=== PATIENT | female | born 1975 | race African-American/Black ===

== ENCOUNTER 2022-01-30 10:00 | Inpatient (IN) | payer MEDICARE, MEDICAID ==
[~2022-01-30] VITALS: Ht 165.1 cm; Wt 96.0 kg
[2022-01-30] VITALS (7 sets, daily range): BP systolic 127–159; BP diastolic 91–113
[~2022-01-30 10:00] MED LIST: ALBU2.5V7 NEB; ALPR-624 PO; ASPI81TA52 PO; BENZ-49 PO; CARV25TA2 PO; FLUT16SP26 BOTHNARES; HYDR50TA65 PO; MONT10TA21 PO; PRED20TA PO; SEVE2.4P3 PO; SULF-14 PO; TIOT18CA3 PO
[2022-01-30] MEDS ORDERED: hydrALAZINE 20mg/ml inj. IV ONE ×2 (10:25→11:25)
[2022-01-30] MEDS ORDERED: nitroGLYCERIN 1gm ointment UD TP ONE (10:25)
--- NOTE | 2022-01-30 11:35 | NUR ---
while giving 5mg hydralazine pt pressure dropped to 124/95, did not give the other 5mg. SBAR to to cerda, gave her vial.
[2022-01-30 11:47] LABS: ALANINE AMINOTRANSFERASE 23 U/L (12-78); ALBUMIN 3.6 G/DL (3.4-5.0); ALBUMIN/GLOBULIN RATIO 1.2 (1.1-1.5); ALKALINE PHOSPHATASE 91 IU/L (46-116); ANION GAP 11 (8-16); ASPARTATE AMINO TRANSFERASE 12 U/L (10-37); BILIRUBIN,TOTAL 0.5 MG/DL (0.1-1.0); BLOOD UREA NITROGEN 71 MG/DL (7-18); BUN/CREATININE RATIO 7.3 (6.6-38.0); CALCIUM 9.5 MG/DL (8.5-10.1); CHLORIDE 100 MMOL/L (99-107); CREATININE 9.76 MG/DL (0.40-0.90); GLUCOSE 232 MG/DL (70-104); SODIUM 141 MMOL/L (135-145); TOTAL CARBON DIOXIDE 30.3 MMOL/L (24-32); TOTAL PROTEIN 6.6 G/DL (6.4-8.2); eGFR 4 ML/MIN
[2022-01-30 11:51] LABS: POTASSIUM 7.3 MMOL/L (3.5-5.1)
[2022-01-30 11:52] LABS: BASOPHILS % (AUTO) 0.2 % (0-1); EOSINOPHILS % (AUTO) 0.3 % (0-6); HEMATOCRIT 36.7 % (35.0-45.0); HEMOGLOBIN 11.2 g/dl (12.0-16.0); LYMPHOCYTES # (AUTO) 1.1 X10'3 (1.1-4.8); LYMPHOCYTES % (AUTO) 9.7 % (21-51); MEAN CORPUSCULAR HEMOGLOBIN 28.1 PG (27.0-31.0); MEAN CORPUSCULAR HGB CONC 30.7 g/dL (33.0-36.5); MEAN CORPUSCULAR VOLUME 91.7 FL (78-98); MEAN PLATELET VOLUME 7.7 FL (7.4-10.4); MONOCYTES # (AUTO) 0.3 X10'3 (0-0.9); MONOCYTES % (AUTO) 3.1 % (2-12); NEUTROPHILS # (AUTO) 9.7 X10'3 (1.8-7.7); NEUTROPHILS % (AUTO) 86.7 % (42-75); PLATELET COUNT 245 X10'3 (140-440); RED CELL DISTRIBUTION WIDTH 16.1 % (11.5-14.5); WHITE BLOOD COUNT 11.2 X10'3 (4.5-11.0)
[2022-01-30] MEDS ORDERED: dextrose 50%-water 50ml dispensing syringe IV ONE (11:55)
[2022-01-30] MEDS ORDERED: insulin regular, human 10 units/0.1 ml syringe IV ONE (11:55)
[2022-01-30] MEDS ORDERED: albuterol 2.5 MG/3 ML nebule CONTNEB PRN (11:55)
[2022-01-30] MEDS ORDERED: PATIROMER CALCIUM SORBITEX 8.4 GM POWD.PACK PO ONE (11:55)
[2022-01-30] MEDS ORDERED: calcium chloride 100 MG/1 ML inj IV ONE ×2 (11:55→12:35)
[2022-01-30] MEDS ORDERED: calcium gluconate inj. 3 GM in normal saline 100ml IV soln 100 ML IV ONE (12:30)
[2022-01-30] MEDS ORDERED: magnesium hydroxide 30ml (MOM) UD suspension PO PRN (12:35)
[2022-01-30] MEDS ORDERED: LIDOcaine 2% 10ml TOPICAL JELLY (Urojet) TP ONE (12:35)
[2022-01-30] MEDS ORDERED: morphine 2 MG/ML inj. syringe IV PRN (12:35)
[2022-01-30] MEDS ORDERED: acetaminophen 325mg tablet PO PRN (12:35)
[2022-01-30] MEDS ORDERED: ondansetron/PF 4mg/2ml inj IV PRN (12:35)
[2022-01-30] MEDS ORDERED: calcium chloride inj. 1,000 MG in NS 100ml IV soln (110ml) IV ONE (12:45)
[2022-01-30] MEDS: acetaminophen 325mg tablet PO PRN (13:09)
[2022-01-30] MEDS ORDERED: MULT-1085 PO (13:33)
[2022-01-30] MEDS ORDERED: BUME2TAB7 PO (13:33)
[2022-01-30] MEDS ORDERED: FAMO20TA8 PO (13:33)
[2022-01-30] MEDS ORDERED: SEVE800T8 PO ×2 (13:33→15:54)
[2022-01-30] MEDS ORDERED: PANT-47 PO (13:33)
[2022-01-30] MEDS ORDERED: GUAI600T45 PO (13:33)
[2022-01-30] MEDS ORDERED: PARO7.5C2 PO (13:33)
[2022-01-30] MEDS ORDERED: PRED5TAB PO (13:33)
[2022-01-30] MEDS ORDERED: FURO-149 PO (13:33)
[2022-01-30] MEDS ORDERED: HYDR-4069 PO (13:33)
[2022-01-30] MEDS ORDERED: ARFO15VI INH (13:33)
--- NOTE | 2022-01-30 13:33 | NUR ---
med rec completed with pt list and external med rec
[2022-01-30] MEDS ORDERED: dextrose 50%-water 50ml dispensing syringe IV PRN ×2 (14:45)
[2022-01-30] MEDS ORDERED: DEXTROSE 15 GM of carb/4 tabs (each vial/BOTTLE has 4 tablets) PO PRN ×2 (14:45)
[2022-01-30] MEDS ORDERED: glucagon, human recombinant 1mg kit SUBCUT PRN (14:45)
[2022-01-30] MEDS ORDERED: heparin 1,000 units/ml 10ml inj IV ONE (15:05)
[2022-01-30] MEDS ORDERED: EPOETIN ALFA-EPBX 20,000 UNIT/ML 1 ML MDV IV ONE (15:05)
[2022-01-30] MEDS ORDERED: heparin 1,000unit/ml 10ml vial 10 ML IV ONE (15:05)
[2022-01-30] MEDS ORDERED: albumin (human) 25% 100ml IV 100 ML IV PRN (15:05)
[2022-01-30] MEDS ORDERED: BUME1TAB8 PO (15:54)
[2022-01-30] MEDS ORDERED: ALBU2.5V13 INH (15:54)
[2022-01-30] MEDS ORDERED: hyDRALAzine 10mg tablet PO ONE (16:10)
[2022-01-30] MEDS ORDERED: LIDOcaine 1% (10mg/ml) 2ml vial SQ ONE (17:20)
[2022-01-30] MEDS ORDERED: fluticasone nasal spray 16GM bottle NS PRN (17:30)
[2022-01-30] MEDS ORDERED: sevelamer carbonate 800mg tablet PO PRN (17:30)
--- NOTE | 2022-01-30 18:37 | NUR ---
Patient in room CICU 2006. I have received report from jane PEREZ and had the opportunity to ask questions and assume patient care.
[2022-01-30] MEDS: albuterol 2.5 MG/3 ML nebule NEB SCH ×2 (19:17→23:00)
[2022-01-30] MEDS ORDERED: albuterol 2.5 MG/3 ML nebule NEB SCH (20:00)
[2022-01-30] MEDS ORDERED: benzonatate 100mg capsule PO PRN (20:30)
[2022-01-30] MEDS ORDERED: hydrOXYzine 25 MG tablet PO ONE (20:30)
[2022-01-30] MEDS: ipratropium 0.5 MG/2.5ML nebule IH SCH (21:00)
[2022-01-30] MEDS ORDERED: ipratropium/albuterol 3ml nebule NEB SCH (21:00)
[2022-01-30] MEDS: benzonatate 100mg capsule PO PRN (21:52)
[2022-01-30] MEDS: docusate sod 100mg capsule PO SCH (21:52)
[2022-01-30] MEDS: carVEDilol 12.5mg tablet PO SCH (21:52)
[2022-01-30] MEDS: guaiFENesin ER 600mg tablet PO SCH (21:53)
[2022-01-30] MEDS: bumetanide 1mg tablet PO SCH (21:56)
[2022-01-30] MEDS: sevelamer carbonate 800mg tablet PO SCH (22:52)
--- NOTE | 2022-01-30 23:30 | NUR ---
Report called to receiving nurse Vanna. Transferred via wheelchair with tele box,Belongings were taken home by mom . Special Issues communicated to receiving nurse.
[2022-01-31] VITALS (7 sets, daily range): BP systolic 104–143; BP diastolic 61–93
[2022-01-31] MEDS: acetaminophen 325mg tablet PO PRN (00:12)
[2022-01-31] MEDS: benzonatate 100mg capsule PO PRN ×2 (00:15→13:46)
[2022-01-31] MEDS: albuterol 2.5 MG/3 ML nebule NEB SCH ×2 (00:37→03:00)
[2022-01-31] MEDS: ipratropium 0.5 MG/2.5ML nebule IH SCH (03:00)
--- NOTE | 2022-01-31 06:15 | NUR ---
Patient in room PCU 3013. I have received report from Maryjo PEREZ and had the opportunity to ask questions and assume patient care.
[2022-01-31 07:15] LABS: MAGNESIUM 2.3 MG/DL (1.5-2.4)
[2022-01-31] MEDS: carVEDilol 12.5mg tablet PO SCH ×2 (07:59→20:11)
[2022-01-31] MEDS: guaiFENesin ER 600mg tablet PO SCH ×2 (07:59→20:11)
[2022-01-31] MEDS: multivitamins, therapeutics tablet PO SCH (07:59)
[2022-01-31] MEDS: predniSONE 5mg tablet PO SCH (08:00)
[2022-01-31] MEDS ORDERED: montelukast 10mg tablet PO SCH (08:00)
[2022-01-31] MEDS: docusate sod 100mg capsule PO SCH ×2 (08:00→20:11)
[2022-01-31] MEDS: sevelamer carbonate 800mg tablet PO SCH ×3 (08:00→20:27)
[2022-01-31] MEDS ORDERED: pantoprazole 40MG/NS 100ML BAG 100 ML IV SCH (08:00)
[2022-01-31] MEDS: bumetanide 1mg tablet PO SCH ×3 (08:01→20:11)
[2022-01-31] MEDS: pantoprazole 40mg Tablet.DR PO SCH (08:01)
[2022-01-31] MEDS: ipratropium/albuterol 3ml nebule NEB SCH ×5 (08:18→23:00)
--- NOTE | 2022-01-31 10:56 | NUR ---
Renal consult: Noted pt admit with hyperkalemia and fluid overload. Pt seen at bedside for written and verbal education regarding potassium content of food, foods considered fluid, and tips for ESRD on HD. Pt denies past h/o elevated electrolytes and states she takes per phos binder per rx. Pt states she sees a dietitian at the dialysis clinic. All of patient's questions were answered at this time. Food preferences were obtained and d/w dietary, see below. Pt endorses a good appetite and denies food allergies or difficulty chewing/swallowing. Pt provided with RD contact information and encouraged to reach out if needed. Noted patient's diet order was completed upon fluid restriction order, d/w RN recommendation to resume renal diet in EMR. Will continue to follow. Recommendations: 1) Resume renal diet; 1 L fluid restriction per MD 2) Embudo food preferences: No pork, white bread, white rice, oatmeal, or cream of wheat; prefers brown rice 3) Bowel care per rx 4) Scaled weights with dialysis Addendum: 01/31/22 at [address] Amended: Links added.
[2022-01-31 11:17] LABS: ALANINE AMINOTRANSFERASE 20 U/L (12-78); ALBUMIN 3.4 G/DL (3.4-5.0); ALBUMIN/GLOBULIN RATIO 1.3 (1.1-1.5); ALKALINE PHOSPHATASE 77 IU/L (46-116); ANION GAP 8 (8-16); ASPARTATE AMINO TRANSFERASE 13 U/L (10-37); BASOPHILS # (AUTO) 0.1 X10'3 (0-0.2); BASOPHILS % (AUTO) 0.5 % (0-1); BILIRUBIN,TOTAL 0.6 MG/DL (0.1-1.0); BLOOD UREA NITROGEN 40 MG/DL (7-18); BUN/CREATININE RATIO 6.8 (6.6-38.0); CALCIUM 9.6 MG/DL (8.5-10.1); CHLORIDE 102 MMOL/L (99-107); CREATININE 5.84 MG/DL (0.40-0.90); EOSINOPHILS # (AUTO) 0.1 X10'3 (0-0.9); EOSINOPHILS % (AUTO) 0.6 % (0-6); GLUCOSE 92 MG/DL (70-104); HEMATOCRIT 35.1 % (35.0-45.0); HEMOGLOBIN 10.8 g/dl (12.0-16.0); LYMPHOCYTES % (AUTO) 18.3 % (21-51); MEAN CORPUSCULAR HEMOGLOBIN 27.8 PG (27.0-31.0); MEAN CORPUSCULAR HGB CONC 30.6 g/dL (33.0-36.5); MEAN CORPUSCULAR VOLUME 90.8 FL (78-98); MEAN PLATELET VOLUME 7.9 FL (7.4-10.4); MONOCYTES # (AUTO) 0.9 X10'3 (0-0.9); MONOCYTES % (AUTO) 8.5 % (2-12); NEUTROPHILS # (AUTO) 7.9 X10'3 (1.8-7.7); NEUTROPHILS % (AUTO) 72.1 % (42-75); PLATELET COUNT 190 X10'3 (140-440); RED BLOOD COUNT 3.87 X10'6 (4.20-5.60); RED CELL DISTRIBUTION WIDTH 16.3 % (11.5-14.5); SODIUM 139 MMOL/L (135-145); TOTAL CARBON DIOXIDE 29.3 MMOL/L (24-32); WHITE BLOOD COUNT 10.9 X10'3 (4.5-11.0); eGFR 9 ML/MIN
--- NOTE | 2022-01-31 11:57 | NUR ---
Message: SAMANTHA ON [email or web address]@[phone], DR. LIZ ASKED THAT I LET YOU KNOW THAT 3013A REFUSED TO LET DR. LIZ TREAT ON EXAMINE HER. PATIENT NAME IS NELLY. I WAS IN THE ROOM AND WITNESSED. DR. LIZ WILL WRITE UP IN HER NOTES. THANK YOU.
--- NOTE | 2022-01-31 13:40 | NUR ---
Paged Dr. Astorga regarding pts request for Atarax for itching. PAGER ID: [phone] MESSAGE: [phone], Maria Dolores Ramirez. Apparently the pt is willing to receive care from you as long as she doesn't have to talk to you, shes itching and asking for Atarax. Marisabel [facility] 1960.
[2022-01-31] MEDS ORDERED: hydrOXYzine 25 MG tablet PO ONE (14:00)
--- NOTE | 2022-01-31 18:32 | NUR ---
Problems reprioritized. Patient report given, questions answered & plan of care reviewed with Maryjo PEREZ, patient stable at transfer of care.
[2022-01-31] MEDS: montelukast 10mg tablet PO SCH (20:28)
[2022-02-01] MEDS: hydrOXYzine 25 MG tablet PO PRN ×2 (01:10→15:41)
[2022-02-01] MEDS: benzonatate 100mg capsule PO PRN ×2 (01:10→15:42)
[2022-02-01] MEDS: ipratropium/albuterol 3ml nebule NEB SCH ×6 (03:00→23:02)
[2022-02-01 06:00] VITALS: BP 131/83
--- NOTE | 2022-02-01 06:16 | NUR ---
Patient in room PCU 3013. I have received report from Maryjo PEREZ and had the opportunity to ask questions and assume patient care.
[2022-02-01] MEDS ORDERED: LIDOcaine 1% (10mg/ml) 2ml vial SQ ONE (08:00)
[2022-02-01] MEDS ORDERED: EPOETIN ALFA-EPBX 20,000 UNIT/ML 1 ML MDV IV ONE (08:00)
[2022-02-01] MEDS ORDERED: normal saline 1000ml 250 ML IV PRN (08:00)
[2022-02-01] MEDS: sevelamer carbonate 800mg tablet PO SCH ×3 (09:18→18:00)
[2022-02-01] MEDS: pantoprazole 40mg Tablet.DR PO SCH (09:19)
[2022-02-01] MEDS: carVEDilol 12.5mg tablet PO SCH ×2 (09:19→20:22)
[2022-02-01] MEDS: docusate sod 100mg capsule PO SCH ×2 (09:19→19:56)
[2022-02-01] MEDS: bumetanide 1mg tablet PO SCH ×3 (09:19→19:58)
[2022-02-01] MEDS: multivitamins, therapeutics tablet PO SCH (09:19)
[2022-02-01] MEDS: predniSONE 5mg tablet PO SCH (09:19)
[2022-02-01] MEDS: guaiFENesin ER 600mg tablet PO SCH ×2 (09:19→19:58)
[2022-02-01] MEDS: heparin 1,000 units/ml 10ml inj IV ONE ×2 (10:43→11:45)
[2022-02-01] MEDS ORDERED: ALPRAZolam 0.5mg tablet PO ONE (10:55)
[2022-02-01 11:00] VITALS: BP 147/100
[2022-02-01 13:10] LABS: MAGNESIUM 2.1 MG/DL (1.5-2.4); POTASSIUM 3.5 MMOL/L (3.5-5.1)
[2022-02-01 15:00] VITALS: BP 91/67
--- NOTE | 2022-02-01 16:31 | NUR ---
Paged Dr. Nugent regarding if its ok if patient doesn't need a new IV. Hers came out and she is a very hard stick and isn't receiving any IV meds. PAGER ID: [phone] MESSAGE: [phone], Maria Dolores Hannaha. Pts IV came out and they are a very hard stick. She is supposed to be discharged tomorrow from what I understand. She isn't getting any IV meds. Is it ok for no IV? Marisabel [facility] 4985.
[2022-02-01 18:00] VITALS: BP 115/84
[2022-02-01 19:55] VITALS: BP 119/79
[2022-02-01] MEDS: montelukast 10mg tablet PO SCH (19:58)
--- NOTE | 2022-02-01 21:21 | NUR ---
Received report from CHRIS Sibley
[2022-02-02 02:43] VITALS: BP 126/94
[2022-02-02] MEDS: ipratropium/albuterol 3ml nebule NEB SCH ×4 (03:00→15:45)
[2022-02-02 06:00] VITALS: BP 128/91
--- NOTE | 2022-02-02 06:17 | NUR ---
Problems reprioritized. Patient report given, questions answered & plan of care reviewed with CHRIS Petit.
[2022-02-02] MEDS: hydrOXYzine 25 MG tablet PO PRN ×2 (07:10→15:46)
[2022-02-02] MEDS: docusate sod 100mg capsule PO SCH (08:00)
[2022-02-02] MEDS: pantoprazole 40mg Tablet.DR PO SCH (08:06)
[2022-02-02] MEDS: guaiFENesin ER 600mg tablet PO SCH (08:06)
[2022-02-02] MEDS: carVEDilol 12.5mg tablet PO SCH (08:06)
[2022-02-02] MEDS: predniSONE 5mg tablet PO SCH (08:06)
[2022-02-02] MEDS: bumetanide 1mg tablet PO SCH (08:06)
[2022-02-02] MEDS: multivitamins, therapeutics tablet PO SCH (08:06)
[2022-02-02] MEDS: sevelamer carbonate 800mg tablet PO SCH ×2 (08:09→12:54)
--- NOTE | 2022-02-02 14:34 | NUR ---
Paged Dr. Nugent asking if patient is still being discharged. PAGER ID: [phone] MESSAGE: [phone], Maria Dolores Ramirez. Is patient still being discharged today? The mom is here and waiting for orders. [facility] 3533.
[2022-02-02] MEDS ORDERED: [UNRECOGNIZED DRUG - OTHER] (15:11)
[2022-02-02] MEDS ORDERED: ARFO15VI INH (15:11)
--- NOTE | 2022-02-02 15:35 | NUR ---
Paged Dr. Nugent that the script he wrote for the patient is not the correct medication. The patient is asking for a different med. PAGER ID: [phone] MESSAGE: [phone], Maria Dolores Ramirez. I am so sorry, Apparently the mother says the medication that they need is Formoterol NOT arformoterol. She says the one that they have available is formoterol. Marisabel [facility] 5415.
[2022-02-02] MEDS ORDERED: FORM20VI4 INH (15:41)
--- NOTE | 2022-02-02 16:27 | NUR ---
Patient stable at discharge per Dr. Nugent orders. All discharge instructions reviewed with patient and all questions answered. New prescription written and sent with the family. Tele discontinued. PIV discontinued yesterday. Wheeled to lobby via nursing staff and picked up by family.
[2022-02-03] MEDS ORDERED: FORM1POW5 INH ×2 (16:31)
[2022-02-03] MEDS ORDERED: FORM20VI4 INH ×2 (16:36→16:40)
== END 2022-02-02 16:09 | disposition home health service (06) | DRG 189 ==
LOC: ER 10:01 → MERGE 12:47 → ED HOLD 12:47 → CICU 2S 14:21 → PCU 3S 23:42
PROVIDERS: ADMIT Family Medicine; ATTEND Family Medicine
PROC: 5A09357 Assistance with Respiratory Ventilation, Less than 24 Consecutive Hours, Continuous Positive Airway Pressure (ICD-10-PCS; principal; 2022-01-30)
PROC: 5A1D70Z Performance of Urinary Filtration, Intermittent, Less than 6 Hours Per Day (ICD-10-PCS; 2022-01-30)
PROC: 5A09357 Assistance with Respiratory Ventilation, Less than 24 Consecutive Hours, Continuous Positive Airway Pressure (ICD-10-PCS; 2022-01-31)
PROC: 5A1D70Z Performance of Urinary Filtration, Intermittent, Less than 6 Hours Per Day (ICD-10-PCS; 2022-02-01)
PROC: 5A09357 Assistance with Respiratory Ventilation, Less than 24 Consecutive Hours, Continuous Positive Airway Pressure (ICD-10-PCS; 2022-02-02)
DX: J96.00 Acute respiratory failure, unspecified whether with hypoxia or hypercapnia (principal); N18.6 End stage renal disease; I40.1 Isolated myocarditis; I13.2 Hypertensive heart and chronic kidney disease with heart failure and with stage 5 chronic kidney disease, or end stage renal disease; E87.2 Acidosis; I50.22 Chronic systolic (congestive) heart failure; E87.5 Hyperkalemia; Z20.822 Contact with and (suspected) exposure to COVID-19; E11.22 Type 2 diabetes mellitus with diabetic chronic kidney disease; E66.01 Morbid (severe) obesity due to excess calories; J44.9 Chronic obstructive pulmonary disease, unspecified; D63.1 Anemia in chronic kidney disease; Z99.2 Dependence on renal dialysis; Z28.310 Unvaccinated for COVID-19; Z68.35 Body mass index [BMI] 35.0-35.9, adult; Z88.8 Allergy status to other drugs, medicaments and biological substances; Z79.899 Other long term (current) drug therapy
CPT/HCPCS: 36415; 71045; 80053; 82948; 83036; 83735; 83880; 84132; 84484; 85025; 85610; 87081; 87635; 94640; 94660; 94760; 96374; 96375; 97116; 97161; 97530; 99285; A7015; G0257; G0378; J0360; J1644; J1815; J3490; J7512; Q0177; Q4081

== ENCOUNTER 2022-09-01 08:05 | Day surgery (SDC) | payer MEDICARE, MEDICAID ==
[~2022-09-01 08:05] MED LIST changes: +ADV50100 PO; +ALBU2.5V13 INH; -ALBU2.5V7 NEB; -ALPR-624 PO; +ALPR0.252 PO; -ASPI81TA52 PO; -BENZ-49 PO; -CARV25TA2 PO; +CARV25TA3 PO; +CETI10TA14 PO; +DOXE10CA3 PO; +FOLI1TAB34 PO; +FORM20VI4 PO; +MEPO100A SQ; -MONT10TA21 PO; -PRED20TA PO; -SEVE2.4P3 PO; +SEVE800T7 PO; +SODI10PO PO; -SULF-14 PO; +TES100C PO
[2022-09-01 08:30] VITALS: BP 137/85
--- NOTE | 2022-09-01 09:02 | NUR ---
Dr. Canchola at bedside, procedure cancelled due to patient requesting a General anesthetic for sedation. Will reschedule.
== END 2022-09-01 09:04 | disposition home or self-care (01) ==
LOC: SSTAY O 08:05
PROVIDERS: ATTEND Radiology Diagnostic Radiology
DX: T82.858A Stenosis of other vascular prosthetic devices, implants and grafts, initial encounter (principal); Z53.8 Procedure and treatment not carried out for other reasons; Y83.8 Other surgical procedures as the cause of abnormal reaction of the patient, or of later complication, without mention of misadventure at the time of the procedure
CPT/HCPCS: J7030

== ENCOUNTER 2022-09-08 09:03 | Day surgery (SDC) | payer MEDICARE, MEDICAID ==
[2022-09-07 10:36] LABS: BASOPHILS % (AUTO) 0.5 % (0-1); EOSINOPHILS # (AUTO) 0.1 X10'3 (0-0.9); EOSINOPHILS % (AUTO) 1.2 % (0-6); LYMPHOCYTES % (AUTO) 30.9 % (21-51); MEAN CORPUSCULAR HEMOGLOBIN 27.8 PG (27.0-31.0); MEAN CORPUSCULAR HGB CONC 31.3 g/dL (33.0-36.5); MEAN CORPUSCULAR VOLUME 88.7 FL (78-98); MEAN PLATELET VOLUME 7.1 FL (7.4-10.4); MONOCYTES % (AUTO) 15.5 % (2-12); NEUTROPHILS # (AUTO) 3.4 X10'3 (1.8-7.7); NEUTROPHILS % (AUTO) 51.9 % (42-75); PRE OP HEMATOCRIT 36.6 % (35.0-45.0); PRE OP HEMOGLOBIN 11.5 g/dL (12.0-16.0); PRE OP PLATELET COUNT 318 X10'3 (140-440); RED BLOOD COUNT 4.13 X10'6 (4.20-5.60); RED CELL DISTRIBUTION WIDTH 17.1 % (11.5-14.5)
[2022-09-07 10:52] LABS: ALBUMIN 3.2 G/DL (3.4-5.0); ALBUMIN/GLOBULIN RATIO 0.8 (1.1-1.5); ALKALINE PHOSPHATASE 185 IU/L (46-116); BLOOD UREA NITROGEN 35 MG/DL (7-18); BUN/CREATININE RATIO 5.1 (6.6-38.0); CALCIUM 10.5 MG/DL (8.5-10.1); CHLORIDE 97 MMOL/L (99-107); CREATININE 6.87 MG/DL (0.40-0.90); PRE OP ALT 25 U/L (30-65); PRE OP ANION GAP 10 (8-16); PRE OP AST 21 U/L (10-37); PRE OP BILIRUB, TOTAL 0.4 MG/DL (0.0-1.0); PRE OP GLUCOSE 103 MG/DL (70-104); PRE OP POTASSIUM 5.3 MMOL/L (3.4-5.1); PRE OP SODIUM 136 MMOL/L (135-145); TOTAL CARBON DIOXIDE 29.2 MMOL/L (24-32); eGFR 8 ML/MIN
[2022-09-08] VITALS (13 sets, daily range): BP systolic 107–145; BP diastolic 69–98
[~2022-09-08] VITALS: Ht 165.1 cm; Wt 102.0 kg
[~2022-09-08 09:03] MED LIST changes: +DOCUMENT DATE & TIME OF BETA-BLOCKER PO ONE; -DOXE10CA3 PO; -SODI10PO PO; +albuterol 2.5 MG/3 ML nebule NEB ONE; +famotidine 20mg tablet PO ONE; +normal saline 1000ml 1,000 ML IV SCH; +ringers solution, lacted 1,000 ML IV SCH
[2022-09-08] MEDS ORDERED: morphine 2 MG/ML inj. syringe IV PRN (10:00)
[2022-09-08] MEDS ORDERED: ondansetron/PF 4mg/2ml inj IV PRN (10:00)
[2022-09-08] MEDS ORDERED: fentaNYL/PF 50MCG/1 ML 2ML syringe IV PRN ×2 (10:00)
[2022-09-08] MEDS ORDERED: hydrALAZINE 20mg/ml inj. IV PRN (10:00)
[2022-09-08] MEDS ORDERED: ringers solution, lacted 1,000 ML IV SCH (10:00)
[2022-09-08] MEDS ORDERED: labetalol 20mg/4ml (5mg/ml) syringe IV PRN (10:00)
[2022-09-08] MEDS ORDERED: morphine 4 MG/ML inj SYRINge IV PRN (10:00)
[2022-09-08] MEDS ORDERED: normal saline 1000ml 1,000 ML IV SCH (10:20)
[2022-09-08] MEDS ORDERED: LIDOcaine 1% 30ml preserv. free vial ONE (10:39)
[2022-09-08] MEDS ORDERED: albuterol 2.5 MG/3 ML nebule NEB ONE ×2 (11:20→16:30)
[2022-09-08] MEDS ORDERED: sevoflurane 250ml liquid IH ONE (11:50)
[2022-09-08] MEDS ORDERED: midazolam 1 mg/ML 2ml injection ONE (11:56)
[2022-09-08] MEDS ORDERED: propofol inj 20 ML IV ONE (11:57)
[2022-09-08] MEDS ORDERED: LIDOcaine 2% (20mg/ml) 5ml vial ONE (11:57)
[2022-09-08] MEDS ORDERED: heparin 1,000 UNITS/NS 500ml 500 ML ONE (12:10)
[2022-09-08] MEDS ORDERED: ondansetron/PF 4mg/2ml inj ONE (12:14)
[2022-09-08] MEDS ORDERED: dexamethasone sod phosphate 4mg/ml inj. ONE (12:14)
[2022-09-08] MEDS ORDERED: albumin (Human) 5% 250ml 250 ML IV ONE ×2 (12:17→12:51)
[2022-09-08] MEDS ORDERED: iohexol 300mg/ml 100ml inj. ONE ×2 (12:21→13:09)
[2022-09-08] MEDS ORDERED: fentaNYL /PF 50mcg/ml 5ml ampule ONE (12:31)
[2022-09-08] MEDS ORDERED: phenylephrine 10mg/ml inj. -priapism dosing ONE (12:40)
[2022-09-08] MEDS ORDERED: tPA-cathflo 2 MG/2 ml IV flush ONE (13:35)
--- NOTE | 2022-09-08 14:40 | NUR ---
Received from OR via ZELDA, accompanied by Anesthesiologist DR JACOBS and report given by Anesthesiologist AND RECRUITING OPERATIONS CONSULTANT. PT DROWSY, DENIES PAIN. RIGHT FOREARM ABOVE WRIST AND JUST BELOW ELBOW W/FOAM TAPE COVERING SMALL INCISIONS CDI. Addendum: 09/08/22 at 1500 by Alessandra Recinos RN Amended: Links added.
--- NOTE | 2022-09-08 16:34 | NUR ---
PT REMAINS STABLE, REQUESTING A BREATHING TX PRIOR TO D/C, SA02 REMAINS 98& ON RA, PT W/FAINT WHEEZE, ORDERS RECEIVED TO GIVE A BREATHING TX PRIOR TO D/C. PAGE INTO RT. Addendum: 09/08/22 at 1635 by Alessandra Recinos RN Amended: Links added.
--- NOTE | 2022-09-08 16:50 | NUR ---
BREATHING TX GIVEN BY RT, PT STATES SHE FEELS CLEARER, LUNGS CLEAR. D/C INSTRUCTIONS GIVEN AND GONE OVER W/PT AND PTS MOM WHO VERBALIZED UNDERSTANDING. PT D/CD TO HOME VIA W/C TO PRIVATE VEHICLE W/O INCIDENT. Addendum: 09/08/22 at 1659 by Alessandra Recinos RN Amended: Links added.
[2022-09-11] MEDS ORDERED: METO5TAB98 PO (16:47)
[2022-09-11] MEDS ORDERED: DOXE10CA3 PO (16:47)
[2022-09-11] MEDS ORDERED: SODI10PO PO (16:47)
[2022-09-11] MEDS ORDERED: METO5TAB7 PO (16:47)
[2022-09-11] MEDS ORDERED: GABA-530 PO (16:47)
[2022-09-11] MEDS ORDERED: SULF-14 PO (16:47)
== END 2022-09-08 16:50 | disposition home or self-care (01) ==
LOC: PAS 09:03
PROVIDERS: ATTEND Radiology Diagnostic Radiology
DX: T82.868A Thrombosis due to vascular prosthetic devices, implants and grafts, initial encounter (principal); J45.909 Unspecified asthma, uncomplicated; G47.30 Sleep apnea, unspecified; E11.22 Type 2 diabetes mellitus with diabetic chronic kidney disease; I12.0 Hypertensive chronic kidney disease with stage 5 chronic kidney disease or end stage renal disease; N18.6 End stage renal disease; E66.9 Obesity, unspecified; Z68.37 Body mass index [BMI] 37.0-37.9, adult; Z90.710 Acquired absence of both cervix and uterus; Z98.890 Other specified postprocedural states; Z86.73 Personal history of transient ischemic attack (TIA), and cerebral infarction without residual deficits; Z88.8 Allergy status to other drugs, medicaments and biological substances; Z79.899 Other long term (current) drug therapy; Y83.2 Surgical operation with anastomosis, bypass or graft as the cause of abnormal reaction of the patient, or of later complication, without mention of misadventure at the time of the procedure; Y92.89 Other specified places as the place of occurrence of the external cause
CPT/HCPCS: 36905; 94640; C1725; C1769; C1894; J1100; J1644; J2250; J2370; J2405; J2704; J2997; J3010; J3490; J7030; J7040; J7120; P9045; Q9967; Z7512; 80053; 85025; A4618; C1757

== ENCOUNTER 2022-10-06 11:19 | Emergency (ER) | payer MEDICARE, MEDICAID ==
[~2022-10-06] VITALS: Ht 165.1 cm; Wt 103.0 kg
[~2022-10-06 11:19] MED LIST changes: -ALBU2.5V13 INH; -CETI10TA14 PO; -DOCUMENT DATE & TIME OF BETA-BLOCKER PO ONE; +DOXE10CA3 PO; -FLUT16SP26 BOTHNARES; -FOLI1TAB34 PO; +GABA-530 PO; -MEPO100A SQ; +METO5TAB7 PO; +METO5TAB98 PO; +SODI10PO PO; +SULF-14 PO; -albuterol 2.5 MG/3 ML nebule NEB ONE; -famotidine 20mg tablet PO ONE; -normal saline 1000ml 1,000 ML IV SCH; -ringers solution, lacted 1,000 ML IV SCH
[2022-10-06] MEDS ORDERED: albuterol 2.5 MG/3 ML nebule CONTNEB PRN (12:40)
--- NOTE | 2022-10-06 14:18 | NUR ---
CALLED [facility], CONFIRMED PT WILL HAVE CHAIR TIME ON ARRIVAL FOR DIALYSIS TODAY AFTER DC FROM ER.
[2022-10-06 14:26] VITALS: BP 129/96
== END 2022-10-06 14:27 | disposition home or self-care (01) ==
LOC: ER 11:20
DX: J45.901 Unspecified asthma with (acute) exacerbation (principal); R42 Dizziness and giddiness; N18.9 Chronic kidney disease, unspecified; I50.9 Heart failure, unspecified; Z72.89 Other problems related to lifestyle; Z88.8 Allergy status to other drugs, medicaments and biological substances; Z79.899 Other long term (current) drug therapy
CPT/HCPCS: 71045; 94640; 94644; 94760; 99285; A7015

== ENCOUNTER 2022-11-04 16:38 | Emergency (ER) | payer MEDICARE, MEDICAID ==
[~2022-11-04] VITALS: Ht 165.1 cm; Wt 100.9 kg
[~2022-11-04 16:38] MED LIST changes: +BENZ-111 PO; -TES100C PO
--- NOTE | 2022-11-04 18:16 | NUR ---
PER PT BRAZING MACHINE SETTER, DIALYSIS PORT MY BE USED TO DRAW BLOOD.
[2022-11-04] MEDS ORDERED: heparin 1,000 units/ml 10ml inj HE ONE (20:10)
--- NOTE | 2022-11-04 20:14 | NUR ---
SPOKE WITH [facility] N[facility] REGARDING ACCESSING PT DIALYSIS PORT PER DR HURT
[2022-11-04 20:32] LABS: BASOPHILS % (AUTO) 0.2 % (0-1); EOSINOPHILS # (AUTO) 0.1 X10'3 (0-0.9); EOSINOPHILS % (AUTO) 0.6 % (0-6); HEMOGLOBIN 12.3 g/dl (12.0-16.0); LYMPHOCYTES # (AUTO) 2.3 X10'3 (1.1-4.8); LYMPHOCYTES % (AUTO) 25.8 % (21-51); MEAN CORPUSCULAR HEMOGLOBIN 26.9 PG (27.0-31.0); MEAN CORPUSCULAR HGB CONC 31.4 g/dL (33.0-36.5); MEAN CORPUSCULAR VOLUME 85.8 FL (78-98); MEAN PLATELET VOLUME 8.1 FL (7.4-10.4); MONOCYTES # (AUTO) 0.7 X10'3 (0-0.9); MONOCYTES % (AUTO) 8.3 % (2-12); NEUTROPHILS # (AUTO) 5.8 X10'3 (1.8-7.7); NEUTROPHILS % (AUTO) 65.1 % (42-75); PLATELET COUNT 202 X10'3 (140-440); RED BLOOD COUNT 4.55 X10'6 (4.20-5.60); RED CELL DISTRIBUTION WIDTH 16.1 % (11.5-14.5); WHITE BLOOD COUNT 8.9 X10'3 (4.5-11.0)
[2022-11-04 20:34] LABS: ALANINE AMINOTRANSFERASE 25 U/L (12-78); ALBUMIN 3.6 G/DL (3.4-5.0); ALBUMIN/GLOBULIN RATIO 1.3 (1.1-1.5); ALKALINE PHOSPHATASE 112 IU/L (46-116); ANION GAP 8 (8-16); ASPARTATE AMINO TRANSFERASE 19 U/L (10-37); BILIRUBIN,TOTAL 0.9 MG/DL (0.1-1.0); BLOOD UREA NITROGEN 24 MG/DL (7-18); BUN/CREATININE RATIO 5.2 (6.6-38.0); CALCIUM 8.7 MG/DL (8.5-10.1); CHLORIDE 99 MMOL/L (99-107); CREATININE 4.62 MG/DL (0.40-0.90); GLUCOSE 189 MG/DL (70-104); POTASSIUM 4.3 MMOL/L (3.5-5.1); SODIUM 139 MMOL/L (135-145); TOTAL CARBON DIOXIDE 31.9 MMOL/L (24-32); TOTAL PROTEIN 6.3 G/DL (6.4-8.2); eGFR 10 ML/MIN
[2022-11-04] MEDS ORDERED: albuterol 2.5 MG/3 ML nebule CONTNEB PRN (20:45)
[2022-11-04] MEDS ORDERED: methylPREDNISolone sod succ 125mg/2ml vial IV ONE (20:45)
[2022-11-04] MEDS ORDERED: ipratropium 0.5 MG/2.5ML nebule IH ONE (20:45)
[2022-11-04] MEDS ORDERED: dexamethasone sod phosphate 10mg/ml inj IM STA (21:46)
[2022-11-04] MEDS ORDERED: AZIT-83 PO (21:58)
[2022-11-04] MEDS ORDERED: BENZ-38 PO (21:58)
[2022-11-04] MEDS ORDERED: PRED20TA PO (21:58)
[2022-11-04 22:17] VITALS: BP 120/79
== END 2022-11-04 22:20 | disposition home or self-care (01) ==
LOC: ER 16:39
DX: J98.01 Acute bronchospasm (principal); J44.9 Chronic obstructive pulmonary disease, unspecified; I50.9 Heart failure, unspecified; N18.6 End stage renal disease; Z99.2 Dependence on renal dialysis; Z88.8 Allergy status to other drugs, medicaments and biological substances; Z88.5 Allergy status to narcotic agent; Z79.899 Other long term (current) drug therapy
CPT/HCPCS: 36415; 71045; 80053; 83880; 84484; 85025; 93005; 94640; 94644; 96372; 99285; J1100; J1644; 94760; A7015

== ENCOUNTER 2022-11-12 16:35 | Emergency (ER) | payer MEDICARE, MEDICAID ==
[~2022-11-12] VITALS: Ht 165.1 cm; Wt 96.0 kg
[~2022-11-12 16:35] MED LIST changes: +AZIT-83 PO; +BENZ-38 PO; +PRED20TA PO
[2022-11-12 16:45] VITALS: BP 104/63
[2022-11-13] MEDS ORDERED: PROP10TA10 PO (09:09)
[2022-11-13] MEDS ORDERED: PRED10TA PO (15:23)
[2022-11-13] MEDS ORDERED: METO5TAB7 PO (15:23)
[2022-11-13] MEDS ORDERED: PANT40TA54 PO (15:23)
[2022-11-13] MEDS ORDERED: CETI10TA14 PO (15:23)
[2022-11-13] MEDS ORDERED: ALPR0.252 PO (15:25)
[2022-11-13] MEDS ORDERED: PATI8.4P PO (15:25)
[2022-11-13] MEDS ORDERED: METO5TAB98 PO (15:25)
[2022-11-13] MEDS ORDERED: HYDR50TA65 PO (15:25)
[2022-11-13] MEDS ORDERED: CARV25TA3 PO (15:29)
[2022-11-13] MEDS ORDERED: ADV50100 PO (15:29)
[2022-11-13] MEDS ORDERED: ONDA4TAB12 PO (15:29)
[2022-11-13] MEDS ORDERED: FORM20VI4 PO (15:29)
[2022-11-13] MEDS ORDERED: TIOT18CA3 PO (15:29)
[2022-11-13] MEDS ORDERED: SEVE800T7 PO (15:29)
[2022-11-13] MEDS ORDERED: FLUT16SP26 BOTHNARES (15:29)
[2022-11-13] MEDS ORDERED: NYST15PO4 TOP (15:29)
[2022-11-13] MEDS ORDERED: FOLI1TAB34 PO (15:29)
== END 2022-11-12 19:11 | disposition left against medical advice (07) ==
LOC: ER 16:37
DX: R10.9 Unspecified abdominal pain (principal); Z53.21 Procedure and treatment not carried out due to patient leaving prior to being seen by health care provider
CPT/HCPCS: 99281

== ENCOUNTER 2022-12-08 11:17 | Emergency (ER) | payer MEDICARE, MEDICAID ==
[~2022-12-08] VITALS: Ht 165.1 cm; Wt 96.4 kg
[~2022-12-08 11:17] MED LIST changes: +AMIO200T67 PO; -AZIT-83 PO; -BENZ-111 PO; -BENZ-38 PO; +CEPH250T PO; +CETI10TA14 PO; -DOXE10CA3 PO; +FLUT16SP26 BOTHNARES; +FOLI1TAB34 PO; -GABA-530 PO; +HYDR-3717 PO; -HYDR50TA65 PO; +NYST15PO4 TOP; +ONDA4TAB12 PO; +PANT40TA54 PO; +PATI8.4P PO; -PRED20TA PO; -SODI10PO PO; -SULF-14 PO
[2022-12-08] MEDS ORDERED: ondansetron 4mg rapidly disintigrating tab PO ONE (11:35)
[2022-12-08 11:50] LABS: BASOPHILS % (AUTO) 0.2 % (0-1); EOSINOPHILS # (AUTO) 0.1 X10'3 (0-0.9); EOSINOPHILS % (AUTO) 0.6 % (0-6); HEMATOCRIT 30.7 % (35.0-45.0); HEMOGLOBIN 9.5 g/dl (12.0-16.0); LYMPHOCYTES # (AUTO) 2.3 X10'3 (1.1-4.8); LYMPHOCYTES % (AUTO) 17.3 % (21-51); MEAN CORPUSCULAR HEMOGLOBIN 26.5 PG (27.0-31.0); MEAN CORPUSCULAR HGB CONC 30.9 g/dL (33.0-36.5); MEAN PLATELET VOLUME 7.7 FL (7.4-10.4); MONOCYTES # (AUTO) 1.5 X10'3 (0-0.9); MONOCYTES % (AUTO) 11.3 % (2-12); NEUTROPHILS # (AUTO) 9.3 X10'3 (1.8-7.7); NEUTROPHILS % (AUTO) 70.6 % (42-75); PLATELET COUNT 201 X10'3 (140-440); RED BLOOD COUNT 3.57 X10'6 (4.20-5.60); RED CELL DISTRIBUTION WIDTH 18.4 % (11.5-14.5); WHITE BLOOD COUNT 13.2 X10'3 (4.5-11.0)
[2022-12-08 12:00] LABS: ALANINE AMINOTRANSFERASE 9 U/L (12-78); ALBUMIN 2.7 G/DL (3.4-5.0); ALBUMIN/GLOBULIN RATIO 0.9 (1.1-1.5); ALKALINE PHOSPHATASE 149 IU/L (46-116); ANION GAP 12 (8-16); ASPARTATE AMINO TRANSFERASE 11 U/L (10-37); BILIRUBIN,TOTAL 0.6 MG/DL (0.1-1.0); BLOOD UREA NITROGEN 74 MG/DL (7-18); BUN/CREATININE RATIO 11.7 (10.0-20.0); CALCIUM 9.2 MG/DL (8.5-10.1); CHLORIDE 100 MMOL/L (99-107); GLUCOSE 166 MG/DL (70-104); POTASSIUM 5.4 MMOL/L (3.5-5.1); SODIUM 136 MMOL/L (135-145); TOTAL CARBON DIOXIDE 24.1 MMOL/L (24-32); TOTAL PROTEIN 5.7 G/DL (6.4-8.2); eGFR 7 ML/MIN
--- NOTE | 2022-12-08 12:09 | NUR ---
Dressing placed to pt abdomen. Pt mother states the wound was previously packed and that pt was supposed to have a wound vac for wound healing but this did not happen according to pt mother who is pts primary wound care specialist. Pt off the floor for ct scan.
[2022-12-08 12:19] LABS: ANISOCYTOSIS 2+; PLATELET ESTIMATE NORMAL; TOTAL CELLS COUNTED 100
[2022-12-08 12:20] LABS: HYPERSEGMENTED NEUTROPHILS 1+; POIKILOCYTOSIS FEW; STOMATOCYTES 1+
[2022-12-08] MEDS ORDERED: acetaminophen 325mg tablet PO ONE (12:20)
[2022-12-08 12:21] LABS: HYPOCHROMASIA 1+
--- NOTE | 2022-12-08 12:40 | NUR ---
Provider notified of elevated troponin of 192 at this time .
[2022-12-08] MEDS ORDERED: SULF1TAB49 PO (14:35)
[2022-12-08] MEDS ORDERED: sulfamethoxazole/trimethoprim DS (800/160mg) tablet PO ONE (14:35)
[2022-12-08 16:26] VITALS: BP 133/89
== END 2022-12-08 16:32 | disposition home or self-care (01) ==
LOC: ER 11:18
DX: T81.89XA Other complications of procedures, not elsewhere classified, initial encounter (principal); I12.0 Hypertensive chronic kidney disease with stage 5 chronic kidney disease or end stage renal disease; E13.22 Other specified diabetes mellitus with diabetic chronic kidney disease; N18.6 End stage renal disease; D63.1 Anemia in chronic kidney disease; Z99.2 Dependence on renal dialysis; E87.5 Hyperkalemia; J45.909 Unspecified asthma, uncomplicated; I11.0 Hypertensive heart disease with heart failure; Z88.8 Allergy status to other drugs, medicaments and biological substances; Z88.5 Allergy status to narcotic agent; Z79.899 Other long term (current) drug therapy; Z79.1 Long term (current) use of non-steroidal anti-inflammatories (NSAID); Z79.2 Long term (current) use of antibiotics
CPT/HCPCS: 36415; 74176; 80053; 84484; 85007; 85025; 93005; 99284; 99285

== ENCOUNTER 2023-01-25 11:08 | Day surgery (SDC) | payer MEDICARE, MEDICAID ==
[~2023-01-25] VITALS: Ht 165.1 cm; Wt 91.4 kg
[~2023-01-25 11:08] MED LIST changes: -CEPH250T PO
[2023-01-25] MEDS ORDERED: normal saline 1000ml 1,000 ML IV PRN (11:25)
[2023-01-25 11:45] VITALS: BP 145/83
[2023-01-25] MEDS ORDERED: LIDOcaine 1% 30ml preserv. free vial ONE (12:10)
[2023-01-25] MEDS ORDERED: cefazolin 2gm/D5W 100mL 100 ML IV STA (12:26)
[2023-01-25 12:27] LABS: BASOPHILS # (AUTO) 0.1 X10'3 (0-0.2); EOSINOPHILS # (AUTO) 0.2 X10'3 (0-0.9); EOSINOPHILS % (AUTO) 3.1 % (0-6); HEMATOCRIT 34.1 % (35.0-45.0); HEMOGLOBIN 10.7 g/dl (12.0-16.0); LYMPHOCYTES # (AUTO) 1.9 X10'3 (1.1-4.8); LYMPHOCYTES % (AUTO) 36.1 % (21-51); MEAN CORPUSCULAR HEMOGLOBIN 27.4 PG (27.0-31.0); MEAN CORPUSCULAR HGB CONC 31.5 g/dL (33.0-36.5); MEAN CORPUSCULAR VOLUME 86.9 FL (78-98); MONOCYTES # (AUTO) 0.6 X10'3 (0-0.9); MONOCYTES % (AUTO) 10.3 % (2-12); NEUTROPHILS # (AUTO) 2.7 X10'3 (1.8-7.7); NEUTROPHILS % (AUTO) 49.5 % (42-75); PLATELET COUNT 272 X10'3 (140-440); RED BLOOD COUNT 3.92 X10'6 (4.20-5.60); RED CELL DISTRIBUTION WIDTH 15.1 % (11.5-14.5); WHITE BLOOD COUNT 5.4 X10'3 (4.5-11.0)
[2023-01-25] MEDS ORDERED: TEZE210P INJ (12:40)
[2023-01-25] MEDS ORDERED: FOLI1TAB34 PO (12:41)
[2023-01-25] MEDS ORDERED: LIDOcaine/PRILOcaine 5gm cream TP ONE (12:54)
[2023-01-25] MEDS ORDERED: heparin 1,000unit/ml 10ml vial 10 ML ONE (12:58)
[2023-01-25 13:35] VITALS: BP 108/67
[2023-01-25 13:50] VITALS: BP 129/73
[2023-01-25 14:05] VITALS: BP 136/94
[2023-01-25 14:20] VITALS: BP 123/63
--- NOTE | 2023-01-25 14:30 | NUR ---
Tunnel dialysis catheter used per for iv abx. After infusion finished, catheter was flushed with 20cc of NS and Heparin 1000units/ml /2.4mls infused into catheter post flushing of catheter. Then pt discharged. Addendum: 01/25/23 at 1530 by Robert Robles RN Amended: Links added.
== END 2023-01-25 14:35 | disposition home or self-care (01) ==
LOC: SSTAY O 11:08
PROVIDERS: ATTEND Radiology Vascular & Interventional Radiology
DX: T82.49XA Other complication of vascular dialysis catheter, initial encounter (principal); N18.6 End stage renal disease; Z88.8 Allergy status to other drugs, medicaments and biological substances; Z88.5 Allergy status to narcotic agent; Z79.899 Other long term (current) drug therapy; Y83.8 Other surgical procedures as the cause of abnormal reaction of the patient, or of later complication, without mention of misadventure at the time of the procedure; Y92.89 Other specified places as the place of occurrence of the external cause
CPT/HCPCS: 36415; 36581; 77001; 85025; C1750; C1769; J0690; J1644; J3490; J7030; A4620; A9270

== ENCOUNTER 2023-02-05 19:09 | Emergency (ER) | payer MEDICARE, MEDICAID ==
[~2023-02-05] VITALS: Ht 165.1 cm; Wt 87.3 kg
[~2023-02-05 19:09] MED LIST changes: -AMIO200T67 PO; -CETI10TA14 PO; -METO5TAB7 PO; -METO5TAB98 PO; -PATI8.4P PO; -SEVE800T7 PO; +TEZE210P INJ
[2023-02-05] MEDS ORDERED: ibuprofen tablet 400 MG TABLET PO ONE (21:20)
== END 2023-02-05 21:32 | disposition home or self-care (01) ==
LOC: ER 19:10
DX: S60.212A Contusion of left wrist, initial encounter (principal); Z88.5 Allergy status to narcotic agent; Z88.8 Allergy status to other drugs, medicaments and biological substances; W19.XXXA Unspecified fall, initial encounter; Y93.89 Activity, other specified; Y92.89 Other specified places as the place of occurrence of the external cause; Y99.8 Other external cause status
CPT/HCPCS: 73110; 99284

== ENCOUNTER 2023-03-08 18:28 | Emergency (ER) | payer MEDICARE, MEDICAID ==
[~2023-03-08] VITALS: Ht 165.1 cm; Wt 82.3 kg
[2023-03-08 19:36] LABS: MEAN CORPUSCULAR HGB CONC 32.6 g/dL (33.0-36.5); PLATELET COUNT 336 X10'3 (140-440)
[2023-03-08 19:38] LABS: BASOPHILS # (AUTO) 0.1 X10'3 (0-0.2); BASOPHILS % (AUTO) 0.8 % (0-1); EOSINOPHILS # (AUTO) 0.1 X10'3 (0-0.9); EOSINOPHILS % (AUTO) 1.8 % (0-6); HEMATOCRIT 39.8 % (35.0-45.0); LYMPHOCYTES # (AUTO) 2.3 X10'3 (1.1-4.8); LYMPHOCYTES % (AUTO) 31.1 % (21-51); MEAN CORPUSCULAR HEMOGLOBIN 26.8 PG (27.0-31.0); MEAN CORPUSCULAR VOLUME 82.1 FL (78-98); MEAN PLATELET VOLUME 6.9 FL (7.4-10.4); MONOCYTES # (AUTO) 0.7 X10'3 (0-0.9); NEUTROPHILS # (AUTO) 4.2 X10'3 (1.8-7.7); NEUTROPHILS % (AUTO) 56.3 % (42-75); RED BLOOD COUNT 4.85 X10'6 (4.20-5.60); RED CELL DISTRIBUTION WIDTH 16.4 % (11.5-14.5); WHITE BLOOD COUNT 7.5 X10'3 (4.5-11.0)
--- NOTE | 2023-03-08 19:38 | NUR ---
PT ON DIALYSIS AND DOES NOT PRODUCE URINE.
[2023-03-08 19:55] LABS: ALANINE AMINOTRANSFERASE 19 U/L (12-78); ALBUMIN 2.6 G/DL (3.4-5.0); ALBUMIN/GLOBULIN RATIO 0.8 (1.1-1.5); ALKALINE PHOSPHATASE 237 IU/L (46-116); ANION GAP 13 (8-16); ASPARTATE AMINO TRANSFERASE 40 U/L (10-37); BILIRUBIN,TOTAL 0.5 MG/DL (0.1-1.0); BLOOD UREA NITROGEN 17 MG/DL (7-18); BUN/CREATININE RATIO 2.9 (10.0-20.0); CALCIUM 9.5 MG/DL (8.5-10.1); CHLORIDE 98 MMOL/L (99-107); CREATININE 5.78 MG/DL (0.40-0.90); GLUCOSE 86 MG/DL (70-104); LIPASE < 50 U/L (73-393); POTASSIUM 3.6 MMOL/L (3.5-5.1); SODIUM 138 MMOL/L (135-145); TOTAL CARBON DIOXIDE 27.4 MMOL/L (24-32); TOTAL PROTEIN 5.7 G/DL (6.4-8.2); eGFR 8 ML/MIN
--- NOTE | 2023-03-08 20:32 | NUR ---
pt sees dr south ovalle for vascular surgery.
[2023-03-08] MEDS ORDERED: ondansetron/PF 4mg/2ml inj IV ONE (20:50)
[2023-03-08] MEDS ORDERED: morphine 4 MG/ML inj SYRINge IV ONE (20:50)
[2023-03-08] MEDS ORDERED: vancomycin/NS 1 GM ADD-VANTAGE 250 ML IV ONE (21:05)
[2023-03-08] MEDS ORDERED: cefepime 1GM/NS ADD-VANTAGE 100 ML IV SCH (21:13)
--- NOTE | 2023-03-08 21:18 | NUR ---
wet to dry dressing applied to right upper arm over fistula wound per dr sanchez and dr ovalle instructions.
[2023-03-09 00:29] VITALS: BP 110/62
== END 2023-03-08 23:35 | disposition home or self-care (01) ==
LOC: ER 18:29
DX: M54.9 Dorsalgia, unspecified (principal)
CPT/HCPCS: 71045; 72131; 80053; 83605; 83690; 84145; 85025; 87040; 96365; 96368; 96375; 99285; J0692; J2270; J2405; J3370; A6446; A6449